=== PATIENT | male | born 1955 | race Caucasian/White ===

== ENCOUNTER 2019-03-23 18:49 | Emergency (ER) | payer OTHER ==
[~2019-03-23] VITALS: Ht 182.9 cm; Wt 106.6 kg
[2019-03-23] MEDS ORDERED: CLARITIN10 M3 PO (19:14)
[2019-03-23 20:14] VITALS: BP 156/93
== END 2019-03-23 20:15 | disposition home or self-care (01) ==
LOC: ER 18:49
DX: S06.0X0A Concussion without loss of consciousness, initial encounter (principal); S16.1XXA Strain of muscle, fascia and tendon at neck level, initial encounter; V43.52XA Car driver injured in collision with other type car in traffic accident, initial encounter; Y93.89 Activity, other specified; Y92.411 Interstate highway as the place of occurrence of the external cause; Y99.8 Other external cause status